=== PATIENT | female | born 1950 | race Caucasian/White ===

== ENCOUNTER 2016-07-31 13:28 | Outpatient (CLI) | payer MEDICARE, OTHER ==
[2013-09-17 13:18] VITALS: BP 132/68
== END 2016-07-31 13:30 ==
LOC: CARD 13:28
PROVIDERS: ATTEND Internal Medicine Cardiovascular Disease
DX: I48.91 Unspecified atrial fibrillation (principal)
CPT/HCPCS: 93005; G0463

== ENCOUNTER 2016-09-18 13:26 | Outpatient (CLI) | payer MEDICARE, OTHER ==
[2013-09-17 13:18] VITALS: BP 132/68
== END 2016-09-18 13:27 ==
LOC: CARD 13:26
PROVIDERS: ATTEND Internal Medicine Cardiovascular Disease
DX: I48.91 Unspecified atrial fibrillation (principal); Z79.899 Other long term (current) drug therapy
CPT/HCPCS: G0463

== ENCOUNTER 2017-01-15 14:18 | Outpatient (CLI) | payer MEDICARE, OTHER ==
[2013-09-17 13:18] VITALS: BP 132/68
== END 2017-01-15 14:25 | disposition home or self-care (01) ==
LOC: CARD 14:18
PROVIDERS: ATTEND Internal Medicine Cardiovascular Disease
DX: I48.91 Unspecified atrial fibrillation (principal)
CPT/HCPCS: G0463

== ENCOUNTER 2017-07-30 14:33 | Outpatient (CLI) | payer MEDICARE, OTHER ==
[2013-09-17 13:18] VITALS: BP 132/68
== END 2017-07-30 14:34 ==
LOC: CARD 14:33
PROVIDERS: ATTEND Internal Medicine Cardiovascular Disease
DX: I48.91 Unspecified atrial fibrillation (principal); I35.1 Nonrheumatic aortic (valve) insufficiency; Z86.79 Personal history of other diseases of the circulatory system; Z79.899 Other long term (current) drug therapy; I89.0 Lymphedema, not elsewhere classified
CPT/HCPCS: G0463

== ENCOUNTER 2017-11-19 13:40 | Outpatient (CLI) | payer MEDICARE, OTHER ==
[2013-09-17 13:18] VITALS: BP 132/68
== END 2017-11-19 13:42 ==
LOC: CARD 13:40
PROVIDERS: ATTEND Internal Medicine Cardiovascular Disease
DX: I48.91 Unspecified atrial fibrillation (principal); I34.0 Nonrheumatic mitral (valve) insufficiency; I36.1 Nonrheumatic tricuspid (valve) insufficiency; Z86.79 Personal history of other diseases of the circulatory system; E66.9 Obesity, unspecified; E78.5 Hyperlipidemia, unspecified; I89.0 Lymphedema, not elsewhere classified; Z86.69 Personal history of other diseases of the nervous system and sense organs
CPT/HCPCS: G0463